=== PATIENT | male | born 1950 | race African-American/Black ===

== ENCOUNTER 2018-10-12 14:25 | Inpatient (IN) ==
[2018-10-12 14:51] LABS: BE -2.5 mmoll (-3.0-3.0); BLOOD TYPE ARTERIAL; HCO3-(ACT) 22.6 mmoll (20.0-26.0); METHB 1.2 % (0.0-1.5); O2(CT) 18.8 mL/dL (15.0-23.0); PCO2(98.6) 50 mmHg (35-45); PO2(98.6) 55 mmHg (60-100); SAMPLE BLOOD; SAO2 89.7 % (95.0-100.0); THB 15.9 g/dL (11.5-17.4)
[2018-10-12 14:53] LABS: ALLEN TEST YES; MODALITY ROOM AIR; O2HB 84.4 % (95.0-99.0)
[2018-10-12 15:17] LABS: BASO# 0.06 X1000 (0.0-0.2); BASO% 1.4 % (0.0-0.8); EOS# 0.27 X1000 (0.0-0.7); EOS% 6.3 % (0.0-10.0); HEMATOCRIT 46.5 % (42.0-52.0); HEMOGLOBIN 15.8 g/dL (14.0-18.0); IMM GRAN# 0.03 X1000 (0.0-0.04); IMM GRAN% 0.7 % (0.0-0.5); LYMPH# 1.27 X1000 (1.2-3.4); LYMPH% 29.4 % (20.5-51.1); MCH 34.1 PG (27-31); MCV 100.4 FL (81-99); MONO# 0.28 X1000 (0.11-0.59); MONO% 6.5 % (1.7-9.3); MPV 11.1 FL (7.4-10.4); NEUT# 2.41 X1000 (1.4-6.5); NEUT% 55.7 % (42.2-75.2); PLT 154 X1000 (130-400); PROTIME 11.5 Seconds (11.0-16.0); RBC 4.63 XMIL (4.7-6.1); RDW 11.2 % (11.5-14.5); WBC 4.32 X1000 (4.8-10.8)
[2018-10-12 15:18] LABS: PTT 29.3 Seconds (22.3-41.8)
[2018-10-12] MEDS ORDERED: CATAPRES PO ONE (15:43)
--- NOTE | 2018-10-12 15:50 | EKG Report ---
Test Performed on : 10/12/2018 2:43:34 PM Test Reason : SOB Blood Pressure : / mmHG Vent. Rate : 092 BPM Atrial Rate : 092 BPM P-R Int : 176 ms QRS Dur : 076 ms QT Int : 388 ms P-R-T Axes : 079 000 070 degrees QTc Int : 479 ms Normal sinus rhythm. Possible Left atrial enlargement Possible Anterior infarct , age undetermined Abnormal ECG When compared with ECG of 08-JAN-2017 10:04, aberrant conduction. is no longer present Questionable change in QRS axis Nonspecific T wave abnormality no longer evident in Lateral leads Unconfirmed Result
[2018-10-12 15:51] LABS: ALBUMIN 4.4 g/dL (3.5-5.0); CREATININE 1.2 mg/dL (0.7-1.2); POTASSIUM 4.5 mmol/L (3.5-5.1); TOTAL BILIRUBIN 0.6 mg/dL (0.20-1.00); TOTAL PROTEIN 8.4 g/dL (6.3-8.3)
[2018-10-12 16:06] LABS: INR 0.8
[2018-10-12 16:09] LABS: CK INDEX 2.9 (0.0-2.5); CK-MB 8.31 ng/mL (0.0-5.0)
--- NOTE | 2018-10-12 16:33 | Diag Imaging Result Doc PS360 ---
EXAM: CHEST-2 VIEWS HISTORY: SOB TECHNIQUE: Chest two views COMPARISON: 01/14/2018 FINDINGS: The lungs are well expanded. The heart is not enlarged. The vessels are small. There are no infiltrates. No pleural effusions. There is a calcified left hilar lymph node. IMPRESSION: No acute abnormality. Electronically signed by Justo Tucker 10/12/2018 4:31 PM
[2018-10-12] MEDS ORDERED: TYLENOL PO PRN (17:06)
[2018-10-12] MEDS ORDERED: ATIVAN IV PRN (17:10)
--- NOTE | 2018-10-12 17:47 | PROVIDER DOCUMENTATION ---
This chart was entered by Fallon Cabrera Scribe, acting as scribe for Binu Covington MD. HPI-Respiratory General - General Chief Complaint: Shortness of Breath Stated Complaint: SOB Time Seen by Provider: 10/12/18 14:58 Source: patient Allergies/Adverse Reactions: Patient Allergies Allergy/AdvReac Type Severity Reaction Status Date / Time No Known Allergies Allergy Verified 01/14/18 12:10 Home Medications: Home Medication List Medication Instructions Recorded Confirmed Last Taken Type Unobtainable [Home Meds 10/12/18 10/12/18 Unknown History Unobtainable] - History of Present Illness-Resp Nature of Presenting Problem: 68 y/o male presents to ED with SOB and weight loss onset 2 days ago. Pt is alert and oriented. Quality of Pain: reports: none Severity in ED: reports: mild Onset/Duration: reports: 2 days ago Timing: reports: still present Context: reports: other Exposure: reports: unknown cause Cough Quality/Degree: reports: no cough Episode Frequency: no prior episodes Current Respiratory Medication Therapy: Initiated see nurses note Modifying Factors: improves with: nothing Associated Symptoms: reports: shortness of breath, short of breath, other (weight loss) Similar Symptoms Previously?: No Recently seen or treated by another doctor?: No Review of Systems - Adult - REVIEW OF SYSTEMS - ADULT Constitutional: reports: weight loss. denies: chills, fever Eyes: reports: no symptoms reported Ears, Nose, Mouth & Throat: reports: no symptoms reported Cardiovascular: denies: chest pain, palpitations Respiratory: reports: shortness of breath. denies: cough Gastrointestinal: denies: abdominal pain, diarrhea, nausea, vomiting Genitourinary: reports: no symptoms reported Musculoskeletal: denies: back pain, joint pain Integumentary: reports: no symptoms reported Neurological: denies: dizziness/vertigo, seizure Psychiatric: reports: no symptoms reported Endocrine: reports: no symptoms reported Hematologic/Lymphatic: reports: no symptoms reported Allergic/Immunologic: reports: no symptoms reported All Other Systems: Reviewed and Negative Past History - Adult - PAST MEDICAL HISTORY-ADULT Review of Records: reports: Old Records Reviewed, Nursing Assessment Review, Medications Reviewed Major Childhood Illnesses: reports: denies history Cardiovascular: reports: denies history, HTN Respiratory: reports: denies history, COPD Gastrointestinal: reports: denies history Obstetrical/Gynecological: reports: denies history Genitourinary: reports: denies history Musculoskeletal: reports: denies history Neurological: reports: denies history Endocrine/Immune: reports: denies history Other Conditions: reports: denies history - PRIOR SURGERIES/PROCEDURES Surgical/Procedure History: reports: none - IMMUNIZATION STATUS Childhood Immunizations: See Nurse Assessment Flu Vaccine: See Nurse Assessment - FAMILY HISTORY Family History: reviewed, not pertinent - SOCIAL HISTORY Smoking: less than 1 pack/day Provider spent 3-5 mins advising pt. on dangers of tobacco.: Discussed manners to quit use, and f/u contacts for add'l counseling. Substance Use: none/never Alcohol Use Frequency: occasionally Living Situation: family Physical Exam-General - PHYSICAL EXAM-ADULT Initial Vital Signs Reviewed: Yes - CONSTITUTIONAL General Appearance: appears well, alert, moderate distress - EYES Eyes: PERRL/EOMI, pink conjunctivae - HEAD, EARS, NOSE, MOUTH & THROAT HENMT: normocephalic/atraumatic, moist mucous membranes, normal ENT inspection - NECK Neck: non-tender, full range of motion - RESPIRATORY Respiratory: chest non-tender, respiratory distress, accessory muscle use, wheezing (external), increased rate, other (shallow respirations) - CARDIOVASCULAR Cardiovascular: normal peripheral pulses, regular rate, rhythm - GASTROINTESTINAL (ABDOMEN) Abdominal Exam: normal bowel sounds, non tender, soft - MUSCULOSKELETAL Back Exam: normal inspection, no CVA tenderness Extremity: normal range of motion, non-tender, normal gait - SKIN Integumentary: normal color, warm/dry - NEUROLOGIC Neurologic: grossly normal - PSYCHIATRIC Psych/Mental Status: normal mood/affect, normal thought content, normal thought process - HEART Score HEART Score: History: Slightly Suspicious HEART Score: ECG: Normal HEART Score: Age: > or = 65 Years HEART Score: Risk Factors for Atherosclerotic Disease: 1 or 2 Risk Factors HEART Score: Troponin: < or = Normal Limit Total HEART Score:: 3 Progress - PLAN OF CARE/RESULTS Progress/Plan/Lab Results: Vital Signs - 8 hr 10/12/18 14:31 10/12/18 14:54 10/12/18 16:24 Temperature 97.1 F L Pulse Rate 96 H 86 Respiratory Rate 28 H 35 H 18 Blood Pressure 202/115 173/114 O2 Sat by Pulse Oximetry 90 L 95 10/12/18 16:45 Temperature Pulse Rate 80 Respiratory Rate 18 Blood Pressure 159/98 O2 Sat by Pulse Oximetry 95 Laboratory Results - last 24 hr 10/12/18 10/12/18 10/12/18 14:40 14:48 14:48 WBC 4.32 L RBC 4.63 L Hgb 15.8 Hct 46.5 MCV 100.4 H MCH 34.1 H MCHC 34.0 RDW Std Deviation 11.2 L Plt Count 154 MPV 11.1 H Immature Gran % (Auto) 0.7 H Neut % (Auto) 55.7 Lymph % (Auto) 29.4 [place] % (Auto) 6.5 Eos % (Auto) 6.3 Baso % (Auto) 1.4 H Immature Gran # (Auto) 0.03 Neut # (Auto) 2.41 Lymph # (Auto) 1.27 [place] # (Auto) 0.28 Eos # (Auto) 0.27 Baso # (Auto) 0.06 PT INR PTT (Actin FS) Specimen Type ARTERIAL Sample Site L RADIAL pH 7.30 L pCO2 50 H pO2 55 L HCO3 22.6 Base Excess -2.5 Oxyhemoglobin 84.4 L* ABG O2 Sat (Calculated) 18.8 ABG O2 Saturation 89.7 L ABG Carboxyhemoglobin 4.70 H ABG Methemoglobin 1.2 Yanick Test YES A-a O2 Difference 32.0 Total Hemoglobin 15.9 Lactate 2.60 H Blood Gas Modality ROOM AIR FiO2 % 21.0 Sodium 138 Potassium 4.5 Chloride 96 L Carbon Dioxide 28 Anion Gap 15 BUN 13 Creatinine 1.2 Estimated GFR/1.73 m2 60 BUN/Creatinine Ratio 11 Glucose 100 Calculated Osmolality 276 Calcium 9.0 Total Bilirubin 0.60 AST 112 H ALT 49 H Alkaline Phosphatase 80 Creatine Kinase 286 H Creatine Kinase Index 2.9 H CK-MB (CK-2) 8.31 H Troponin T Fid-W-Ytwqpcpbzqr Pept Total Protein 8.4 H Albumin 4.4 Globulin 4.0 Albumin/Globulin Ratio 1.0 10/12/18 10/12/18 10/12/18 14:48 14:48 14:48 WBC RBC Hgb Hct MCV MCH MCHC RDW Std Deviation Plt Count MPV Immature Gran % (Auto) Neut % (Auto) Lymph % (Auto) [place] % (Auto) Eos % (Auto) Baso % (Auto) Immature Gran # (Auto) Neut # (Auto) Lymph # (Auto) [place] # (Auto) Eos # (Auto) Baso # (Auto) PT 11.5 INR 0.80 PTT (Actin FS) 29.3 Specimen Type Sample Site pH pCO2 pO2 HCO3 Base Excess Oxyhemoglobin ABG O2 Sat (Calculated) ABG O2 Saturation ABG Carboxyhemoglobin ABG Methemoglobin Yanick Test A-a O2 Difference Total Hemoglobin Lactate Blood Gas Modality FiO2 % Sodium Potassium Chloride Carbon Dioxide Anion Gap BUN Creatinine Estimated GFR/1.73 m2 BUN/Creatinine Ratio Glucose Calculated Osmolality Calcium Total Bilirubin AST ALT Alkaline Phosphatase Creatine Kinase Creatine Kinase Index CK-MB (CK-2) Troponin T 0.015 Qot-K-Jglvwhsraog Pept 575 H Total Protein Albumin Globulin Albumin/Globulin Ratio Orders Category Date Time Status Admit - [facility] Routine AdmDCTranf 10/12/18 17:06 Active Activity - Up with Assistance ORDERED Care 10/12/18 17:06 Active Apply Mechanical Device [QM] ORDERED Care 10/12/18 17:06 Active Cardiac Monitoring DIRECTED Care 10/12/18 14:38 Active Intake and Output-Strict ORDERED Care 10/12/18 17:06 Active Oxygen Therapy- ED Nursing DIRECTED Care 10/12/18 14:38 Active Saline Loc DIRECTED Care 10/12/18 17:06 Active Saline Loc NOW Care 10/12/18 14:38 Active Turn, Cough and Deep Breathe Q4HR.AWAKE Care 10/12/18 17:06 Active Vital Signs Order Q 4-HR ASSESS Care 10/12/18 17:07 Active Z-Document. for Tele Applied ORDERED Care 10/12/18 17:07 Active Heart Healthy Diet Diet 10/12/18 17:08 Active CHEST-2 VIEWS [RAD] Stat Exams 10/12/18 14:38 Completed ABG [RESP] Routine Lab 10/12/18 14:40 Completed CBC WITH DIFF [HEME] Routine Lab 10/13/18 06:00 Ordered CBC WITH ELECTRONIC DIFF [HEME] Stat Lab 10/12/18 14:48 Completed CK PROFILE [SP CHEM] Stat Lab 10/12/18 14:48 Completed CK PROFILE [SP CHEM] Stat Lab 10/12/18 16:46 Ordered COMPREHENSIVE METABOLIC PANEL [CHEM] Routine Lab 10/13/18 06:00 Uncollected COMPREHENSIVE METABOLIC PANEL [CHEM] Stat Lab 10/12/18 14:48 Completed PRO B-NATRIURETIC PEPTIDE Stat Lab 10/12/18 14:48 Completed PROTIME WITH INR [COAG] Stat Lab 10/12/18 14:48 Completed PTT [COAG] Stat Lab 10/12/18 14:48 Completed TROPONIN T Stat Lab 10/12/18 14:48 Completed TROPONIN T Stat Lab 10/12/18 16:46 Ordered URINE DRUG SCREEN PL Stat Lab 10/12/18 17:15 Ordered 0.9% Sodium Chloride Inj [Ns] 1,000 ml Med 10/12/18 17:30 Ordered IV 75 mls/hr Acetaminophen [Tylenol] Med 10/12/18 17:06 Ordered 650 mg PO Q6H PRN PRN Albuterol 2.5MG/Ipratrop 0.5MG [Duoneb (A & A)] Med 10/12/18 19:30 Ordered 3 ml INH RTQ4H Azithromycin 500 mg/Ns [Zithromax 500 mg/Ns] Med 10/12/18 17:15 Ordered 500 mg in 250 ml IV Q24H CefTRIAXONE [Rocephin] 1 gm Med 10/12/18 17:15 Ordered 0.9% Sodium Chloride Inj [Ns] 50 ml IV Q24H Clonidine [Catapres] Med 10/12/18 15:43 Discontinued 0.2 mg PO NOW ONE Lorazepam [Ativan] Med 10/12/18 17:10 Ordered 1 mg IV Q4H PRN PRN Methylprednisolone Sod Succ [Solu-Medrol] Med 10/12/18 17:15 Ordered 80 mg IV Q8H Mvi [M.v.i.-12] 10 ml Med 10/12/18 17:15 Ordered Folic Acid 1 mg Magnesium Sulfate 1 gm Thiamine 100 mg 0.9% Sodium Chloride Inj [Ns] 1,000 ml IV DAILY Nicotine Patch [Nicoderm Patch] Med 10/12/18 17:15 Ordered 21 mg TD DAILY Aerosol Treatments Routine Oth 10/12/18 17:09 Active Aerosol Treatments Stat Oth 10/12/18 17:09 Active CP/SOB/Palp >45 yrs of Age Stat Oth 10/12/18 14:38 Ordered Incentive Spirometer Q4HR.AWAKE Oth 10/12/18 21:00 Ordered Incentive Spirometer Q4HR.AWAKE Oth 10/13/18 01:00 Ordered Incentive Spirometer Q4HR.AWAKE Oth 10/13/18 05:00 Ordered Incentive Spirometer Q4HR.AWAKE Ot 10/13/18 09:00 Ordered Incentive Spirometer Q4HR.AWAKE Oth 10/13/18 13:00 Ordered Incentive Spirometer Q4HR.AWAKE Ot 10/13/18 17:00 Ordered Oxygen Device Routine Ot 10/12/18 17:06 Active Peak Flow BID Oth 10/12/18 21:00 Ordered Peak Flow BID Ot 10/13/18 09:00 Ordered Telemetry [OM.EQ] Routine Oth 10/12/18 17:06 Active EKG [EKG] Stat Ther 10/12/18 14:38 Draft EKG [EKG] Stat Ther 10/12/18 16:46 Ordered Transfer/Admit Order [TRANSFER] Routine Transfer 10/12/18 17:10 Ordered Result Diagrams: 10/12/18 14:48 10/12/18 14:48 - EKG 1 Time of EKG reading by physician:: 14:43 EKG Read and Signed by:: Binu Covington EKG Interpretation (*Must complete 3 of following elements*): Abnormal Rate: 92 Rhythm: NSR [place]: normal QRS: other (possible L atrial enlargement; possible anterior infarct) [place] Interval: normal ST Wave: normal - XRAY 1 XRAY Study: Chest Impression: Normal (FINDINGS: The lungs are well expanded. The heart is not enlarged. The vessels are small. There are no infiltrates. No pleural effusions. There is a calcified left hilar lymph node. IMPRESSION: No acute abnormality. Electronically signed by Justo Tucker 10/12/2018 4:31 PM) - CONSULTS/PCP/HOSPITALIST Notification #1 *Consult/PCP/Hospitalist*: Dr. Porter Time Discussed: 17:00 Reason/Comments: COPD exacerbation Consult Disposition: Admit Departure - Departure Date of Disposition Decision: 10/12/18 Time of Disposition Decision: 17:26 DIAGNOSIS: COPD exacerbation Disposition: ADMITTED INPATIENT 09 Certified Medical Emergency: Emergent Condition: Stable Additional Freetext Instructions: ED Follow Up Instructions: You have been treated by a care provider in the Emergency Department. These instructions are being provided to you so you can have an understanding of how to care for yourself upon discharge. Upon discharge from the Emergency Department, you are responsible for making arrangements for follow-up care by a physician of your choice. Take all prescribed medications as directed. Return to the Emergency Department immediately for any new or worsening symptoms. You may call the Physician Referral phone number at [phone] to obtain a list of Physicians who are taking new patients. Referrals and Follow-Ups: None,PCP [Primary Care Provider] - Discharge Education: Chronic Obstructive Pulmonary Disease, [id number] - Critical Care Note This patient required my direct & personal management of CC.: No Attestation - Physician/ JOHNSON Attestation Patient care was provided by Advanced Practice Provider:: No The physician spent face to face time with patient:: Yes Advanced Practice Provider documentation review:: Supervising physician onsite and consulted in the evaluation and care of this patient. The physician did have a face to face encounter with the patient. This chart was documented by the indicated scribe, (Fallon Cabrera, Ursula) and accurately reflects the services I performed and decisions made by me, Binu Covington MD, as attested by the provider's signature.
[2018-10-12 18:48] LABS: UR AMPHETAMINES QUAL NONE DETECTED (NONE DETECT); UR BARBITUATES QUAL NONE DETECTED (NONE DETECT); UR BENZODIAZEPIN QUAL NONE DETECTED (NONE DETECT); UR CANNABINOIDS QUAL NONE DETECTED (NONE DETECT); UR COCAINE QUAL PRESUMPTIVE POSITIVE (NONE DETECT); UR METHADONE QUAL NONE DETECTED (NONE DETECT); UR METHAMPHETAMINE QUAL NONE DETECTED (NONE DETECT); UR OPIATES QUAL NONE DETECTED (NONE DETECT); UR OXYCODONE QUAL NONE DETECTED (NONE DETECT); UR PCP QUAL NONE DETECTED (NONE DETECT); UR PROPOXYPHENE QUAL NONE DETECTED (NONE DETECT); UR TCA QUAL NONE DETECTED (NONE DETECT)
[2018-10-12] MEDS: DUONEB (A & A) INH SCH ×2 (19:18→23:08)
[2018-10-12] MEDS ORDERED: ZITHROMAX 500 MG/NS 500 MG/250 ML IVPB IV SCH (20:00)
[2018-10-12] MEDS: SOLU-MEDROL IV SCH (20:01)
[2018-10-12] MEDS: ROCEPHIN 1 GM in NS 50 ML IV SCH (20:02)
[2018-10-12] MEDS: NS 1,000 ML IV SCH (20:02)
[2018-10-12 20:27] LABS: CK INDEX 3.4 (0.0-2.5); CK-MB 7.43 ng/mL (0.0-5.0)
[2018-10-12] MEDS: NICODERM PATCH TD SCH (23:55)
[2018-10-13] MEDS: DUONEB (A & A) INH SCH ×6 (02:59→23:14)
[2018-10-13] MEDS: SOLU-MEDROL IV SCH ×3 (03:49→19:41)
--- NOTE | 2018-10-13 04:03 | HISTORY AND PHYSICAL ---
PRIMARY CARE PHYSICIAN: None. CHIEF COMPLAINT: Shortness of breath. HISTORY OF PRESENTING ILLNESS: This is a 68-year-old male who presents to [facility] ER with complaints of worsening shortness of breath over the last couple of days. He also states that he has had some profound weight loss recently. He could not give me an exact timeframe but thinks that he has lost 10 pounds over the last couple of weeks, has not been eating as well. States that he drinks a 6 pack of beer and a pint of liquor daily and has done so for about 10 years. Smokes a half a pack of cigarettes a day since he was 17 years old and uses cocaine 1 time every couple of weeks. His workup showed a blood pressure on arrival of 202/115 and was saturating 90% on room air with respirations of 28. His laboratory data showed a creatine kinase of 286, CK-MB 8.31, troponin 0.015. Denies any chest pain. His chest x-ray showed no acute abnormality. EKG showed normal sinus rhythm at 92. Currently on a Venturi mask oxygen flow rate at 12 saturating 95%. Blood pressure down to 159/98 after receiving a 1 time dose of clonidine 0.2 mg p.o. x1 and so he will be admitted for further evaluation and treatment. PAST MEDICAL HISTORY: Hypertension and COPD. PAST SURGICAL HISTORY: None. FAMILY HISTORY: Reviewed and noncontributory. SOCIAL HISTORY: Currently lives with family, smokes a half a pack of cigarettes a day and has done so since he was 17 years old. Drinks a 6 pack of beer and 1 pint of liquor daily and has done so for about 10 years. Illicit drugs he uses cocaine 1 time every couple of weeks. ALLERGIES: He has no known drug allergies. HOME MEDICATIONS: We need to obtain a current list, reconcile, review and restart as appropriate. Will place an order for nursing to update and confirm home medications. LABORATORY DATA: Showed a white blood cell count of 4.32, hemoglobin 15.8, hematocrit 46.5, platelets 154,000, PT and INR of 11.5 and 0.80. ABG with a pH of 7.30, pCO2 of 50, PO2 55, bicarb 22.6 and this was on room air. Sodium of 138, potassium 4.5, chloride 96, CO2 28, BUN of 13, creatinine 1.2, glucose 100, AST 112, ALT 49, creatine kinase of 286, CK-MB of 8.31 with a troponin of 0.015. ProBNP of 575. Chest x-ray showed no acute abnormality. EKG showed normal sinus rhythm at 92. REVIEW OF SYSTEMS: He denied any fever, chills, blurred vision, dizziness, he denied any chest pain. He has had a nonproductive cough, shortness of breath, weight loss of an unknown amount over an unknown amount period of time but the patient states 10 pounds but unsure how long that has been. Denied any abdominal pain, constipation, diarrhea, burning or hurting with urination. PHYSICAL EXAMINATION: On arrival he had a temperature of 97.1 degrees, pulse 96, respirations 28, blood pressure 202/115, saturating 90% on room air, currently he is saturating 95% on 12% venturi mask, blood pressure is down to 159/98, respirations are down to 18. GENERAL: This is a 68-year-old male who is lying in the bed answers questions appropriately is thin and cachectic. HEENT: Normocephalic, atraumatic. Normal ENT inspection. Oropharynx and nares are clear. Pupils are equal, round, and reactive to light and accommodation. Extraocular movements are intact. NECK: Normal inspection, normal range of motion. LUNGS: With wheezing throughout entire posterior lung lynn. He does have some accessory muscle use. Equal lung expansion, chest wall movement noted. Head of bed is noted to be elevated. HEART: Regular rate and rhythm. No murmurs, rubs, or gallops. ABDOMEN: Soft, nontender, nondistended. Bowel sounds are present x4 quadrants. MUSCULOSKELETAL: He has 5/5 strength x4 extremities. NEUROLOGICAL: The cranial nerves 2-12 are grossly intact. Heart score is 3. ASSESSMENT: 1. An acute chronic obstructive pulmonary disease exacerbation. 2. Accelerated hypertension. 3. Elevated liver function tests. 4. Tobacco abuse. 5. Ethanol abuse. 6. Cocaine abuse. PLAN: He will be admitted to the medical unit, placed on telemetry, O2 per protocol, peak flow b.i.d., incentive spirometry, healthy heart diet. We are going to check serial cardiac profile and troponin, check a urine drug screen, place him on DuoNeb q.4 hours, Solu-Medrol 80 mg IV q.8 and wean as he improves, Rocephin 1 gram IV q.24, azithromycin 500 IV q.24, banana bag of fluids, Ativan 1 mg IV q.4 hours p.r.n. for any alcohol withdrawal, nicotine patch 21 mg transdermally daily, banana bag of fluids daily and then we will give him normal saline at 75 mL an hour. Recheck CBC, BMP in the a.m. and further orders after seen by attending. Dictated by THOMAS Stephens for Dudley Porter MD cc: THOMAS Stephens MD
[2018-10-13] MEDS ORDERED: ZITHROMAX 500 MG/NS 500 MG/250 ML IVPB IV SCH (06:35)
[2018-10-13] MEDS: LIBRIUM PO SCH ×4 (07:05→18:18)
[2018-10-13 07:08] LABS: BASO# 0.03 X1000 (0.0-0.2); BASO% 1.2 % (0.0-0.8); EOS# 0.02 X1000 (0.0-0.7); EOS% 0.8 % (0.0-10.0); HEMATOCRIT 43.1 % (42.0-52.0); HEMOGLOBIN 14.4 g/dL (14.0-18.0); LYMPH# 0.25 X1000 (1.2-3.4); LYMPH% 9.8 % (20.5-51.1); MCH 33.4 PG (27-31); MCHC 33.4 g/dL (33-37); MONO# 0.03 X1000 (0.11-0.59); MONO% 1.2 % (1.7-9.3); MPV 11.3 FL (7.4-10.4); NEUT# 2.22 X1000 (1.4-6.5); PLT 150 X1000 (130-400); RBC 4.31 XMIL (4.7-6.1); WBC 2.55 X1000 (4.8-10.8)
[2018-10-13 07:26] LABS: ALBUMIN 3.8 g/dL (3.5-5.0); CALCIUM 8.7 mg/dL (8.8-10.2); CREATININE 1.2 mg/dL (0.7-1.2); POTASSIUM 4.6 mmol/L (3.5-5.1); TOTAL BILIRUBIN 0.5 mg/dL (0.20-1.00); TOTAL PROTEIN 7.1 g/dL (6.3-8.3)
[2018-10-13] MEDS: NS 1,000 ML IV SCH ×3 (07:48→21:55)
[2018-10-13] MEDS: NICODERM PATCH TD SCH ×2 (07:48→09:14)
[2018-10-13 08:17] LABS: LYMPHS 12 % (21-51); MONO 4 % (1-9); SEGS 84 % (42-75)
[2018-10-13 08:18] LABS: ANISOCYTOSIS 1+
[2018-10-13] MEDS: M.V.I.-12 10 ML, FOLIC ACID 1 MG, MAGNESIUM SULFATE 1 GM, THIAMINE 100 MG in NS 1,000 ML IV SCH (09:50)
[2018-10-13] MEDS: ROCEPHIN 1 GM in NS 50 ML IV SCH (18:17)
[2018-10-13] MEDS: ZITHROMAX PO SCH (19:42)
--- NOTE | 2018-10-13 22:20 | PROGRESS NOTE ---
DATE: 10/13/2018 SUBJECTIVE: Patient overall notes he is breathing a little bit easier still has some cough, congestion, shortness of breath. PHYSICAL: Temperature 97.9, pulse 75, respiratory 20, BP 160/71, was 200/115.General: Patient is awake, alert, he is in mild respiratory distress. HEENT: Normocephalic. Neck: Supple. CV: Regular rate. Chest: Clear. Abdomen: Soft. Extremities: Moves all extremities. ASSESSMENT: 1. Acute chronic obstructive pulmonary disease exacerbation. 2. Accelerated hypertension improved . 3. Chronic tobacco abuse. 4. Chronic ethanol abuse. 5. Chronic cocaine abuse. PLAN: Will continue antibiotics, will place him on Librium given his chronic alcoholism, will continue to wean as tolerated. Will decrease Solu-Medrol to 60 IV q.8 and will follow. Expect him to be in the hospital for couple of days. cc: Lisandro Albarran MD
[2018-10-14] MEDS: LIBRIUM PO SCH ×4 (00:14→16:05)
[2018-10-14] MEDS: DUONEB (A & A) INH SCH ×6 (03:14→23:26)
[2018-10-14] MEDS: SOLU-MEDROL IV SCH ×3 (03:24→20:15)
[2018-10-14] MEDS: M.V.I.-12 10 ML, FOLIC ACID 1 MG, MAGNESIUM SULFATE 1 GM, THIAMINE 100 MG in NS 1,000 ML IV SCH (08:58)
[2018-10-14] MEDS: NICODERM PATCH TD SCH (08:59)
[2018-10-14] MEDS: NS 1,000 ML IV SCH ×2 (16:06→16:07)
[2018-10-14] MEDS: ROCEPHIN 1 GM in NS 50 ML IV SCH (18:09)
[2018-10-14] MEDS: ZITHROMAX PO SCH (20:15)
--- NOTE | 2018-10-14 22:10 | PROGRESS NOTE ---
DATE: 10/14/2018 SUBJECTIVE: Patient notes that his breathing is a little bit better. Denies any chest pain or palpitations currently. Still having shortness of breath with activity. OBJECTIVE: Vital signs: Temperature 97.9, pulse 94, respiratory rate 22, BP 153/81. General: Patient is awake, alert. He is in minimal current respiratory distress. He is lying in the bed. He is awake, alert, pleasant to talk with. HEENT: Normocephalic, atraumatic. SARA. Neck: Supple. No JVD. Cardiovascular: Regular rate. Chest: Minimal wheezing. Much better air movement. Abdomen: Soft, nondistended. Extremities: Moves all extremities. ASSESSMENT: 1. Acute chronic obstructive pulmonary disease exacerbation. 2. Chronic tobacco abuse. 3. Chronic ethanol abuse. 4. Chronic cocaine abuse. 5. Decelerated hypertension, improved. PLAN: We will continue patient in the hospital, decrease the Solu-Medrol to 40 IV q.8 today, change azithromycin to p.o., continue Rocephin, saline lock. We will decrease Librium. Hopefully if improves can be discharged home over the next 1 or 2 days. cc: Lisandro Albarran MD
[2018-10-15] MEDS: DUONEB (A & A) INH SCH ×2 (03:10→07:15)
[2018-10-15] MEDS: SOLU-MEDROL IV SCH (03:47)
[2018-10-15 05:00] VITALS: BP 161/92
[2018-10-15] MEDS: NS 1,000 ML IV SCH (06:27)
--- NOTE | 2018-10-15 10:49 | DISCHARGE SUMMARY ---
ADMISSION DATE: 10/12/2018 DISCHARGE DATE: 10/15/2018 DISCHARGE DIAGNOSES: 1. Chronic obstructive pulmonary disease with exacerbation improved. 2. Hypoxic respiratory failure improved. 3. Hypertensive urgency, likely secondary to cocaine use, resolved. Blood pressure is 153/81 on discharge. 4. Hypertension. 5. Chronic tobacco abuse. 6. Medical noncompliance. 7. Chronic ethanol abuse. CONSULTATIONS: None. PROCEDURES: None. BRIEF HOSPITAL COURSE: Patient was admitted to the hospital and treated in the usual fashion. Blood pressure was easily controlled. He was placed on Solu-Medrol, azithromycin and Rocephin. We did also place him on Librium low dose taper at 25 q.6h and tapered off secondary to his chronic alcoholism. Thankfully, he had no withdrawal symptoms while in the hospital. On discharge, he is awake and alert. He is feeling better. His breathing is improved. He is no longer wheezing. We will discharge him home. DISPOSITION: Patient will be discharged home. Again, we discussed with him the perils of ethanol as well as cocaine use. Discussed with him he needs to stop smoking as well. Discussed current medication treatment. We will discharge him with azithromycin for 3 days, Omnicef for 5 days and a Medrol Dosepak with continue breathing treatments. Further orders as needed. TIME SPENT: Greater than 30 minutes was spent in total care. cc: Lisandro Albarran MD
== END 2018-10-15 09:40 | disposition home or self-care (01) | DRG 190 ==
LOC: P.ED 14:25 → P.MEDSURG 18:10 → SUATTDRO 18:10
PROVIDERS: ATTEND Family Medicine
CPT/HCPCS: 71020; 71046; 80053; 80104; 80301; 80305; 82550; 82553; 82805; 83880; 84484; 85025; 85610; 85730; 93005; 94640; 94760; 94761; 94799; 99285; A9270; G0431; G0434; G0477; J0456; J0696; J2920; J2930; J3411; J3475; J7030